=== PATIENT | female | born 1955 | race Caucasian/White ===

== ENCOUNTER 2022-12-21 11:24 | Emergency (ER) | payer BC, MEDICARE ==
[2022-12-21 11:36] VITALS: RESP 20; TEMP 98.2
[2022-12-21] MEDS ORDERED: ACETAMINOPHEN TAB 500 MG TAB PO STA (12:21)
[2022-12-21 12:31] LABS: Basophils # (A) 0.1 k/uL (0-0.2); Basophils % (A) 0 %; Eosinophils # (A) 0.4 k/uL (0-0.7); Eosinophils % (A) 2 %; HCT 42.3 % (34.0-46.0); Lymphocytes % (A) 10 %; MCH 30.3 pg (25.0-35.0); MCHC 33.1 g/dL (31.0-37.0); MCV 91.6 fL (80.0-100.0); Mean Platelet Volume 8.1; Monocytes # (A) 0.8 k/uL (0-1.0); Monocytes % (A) 4 %; Neutrophils # (A) 15.7 k/uL (1.3-7.7); Neutrophils % (A) 82 %; Platelet Count 276 k/uL (150-450); RBC 4.62 m/uL (3.80-5.40); RDW 12.7 % (11.5-15.5); WBC 19.1 k/uL (3.8-10.6)
--- NOTE | 2022-12-21 12:34 | ED ---
General Adult HPI - General Chief complaint: Skin/Abscess/Foreign Body Stated complaint: Abscess Time Seen by Provider: 12/21/22 11:39 Source: patient Mode of arrival: ambulatory Limitations: no limitations - History of Present Illness Initial comments: 67-year-old female presents to ED with a chief complaint of abscess. Patient notes history of anorectal abscess that was drained previously by Dr. Gabriel. States that she notices since then this occasionally "leaks". States today, or the past 6 days has had swelling, redness, warmth, and pain to the left buttocks and reports that her symptoms feel similar to when she had an anorectal abscess in the past. Denies fever. No other complaints at this time. - Related Data Previous Rx's Medication Instructions Recorded Amoxic-Pot Clav 875-125Mg 1 tab PO Q12HR 10 Days #20 tab 12/21/22 [Augmentin 875-125] Allergies Allergy/AdvReac Type Severity Reaction Status Date / Time No Known Allergies Allergy Verified 12/21/22 11:35 Review of Systems ROS Statement: Those systems with pertinent positive or pertinent negative responses have been documented in the HPI. ROS Other: All systems not noted in ROS Statement are negative. Past Medical History Past Medical History: No Reported History History of Any Multi-Drug Resistant Organisms: None Reported Past Surgical History: Hysterectomy Past Psychological History: No Psychological Hx Reported Smoking Status: Current every day smoker Past Alcohol Use History: Occasional Past Drug Use History: None Reported General Exam Limitations: no limitations General appearance: alert, in no apparent distress Neck exam: Present: normal inspection Respiratory exam: Present: normal lung sounds bilaterally Cardiovascular Exam: Present: regular rate, normal rhythm Rectal exam: Present: other (Proximity 6 x 3 cm indurated warm, erythematous, tender to palpation mass on the right buttocks. Area on the left buttocks shows current area of drainage however no current warmth, erythema, tenderness to palpation, or apparent mass. Chaperoned by Paula BRYANT) Neurological exam: Present: alert, oriented X3 Skin exam: Present: warm, dry Course Vital Signs 12/21/22 11:33 Temperature 98.2 F Pulse Rate 110 H Respiratory 20 Rate Blood Pressure 138/68 O2 Sat by Pulse 96 Oximetry Procedures - Incision & Drainage Site: buttock Size (cm): 6 Anesthetic Used: lidocaine 2%, with epi Amount (mLs): 15 I&D Cleaning Method: Betadine Sterile Field Used?: Yes Scalpel Used: #11 I&D Drainage Obtained: Pus Packing: Iodoform Culture Obtained?: Yes Patient Tolerated Procedure: well, no complications Medical Decision Making - Medical Decision Making Was pt. sent in by a medical professional or institution (, RAMIN, GAS APPLIANCE SERVICER, urgent care, hospital, or skilled nursing...) When possible be specific @ -No Did you speak to anyone other than the patient for history (EMS, parent, family, police, friend...)? What history was obtained from this source @ -No Did you review nursing and triage notes (agree or disagree)? Why? @ -I reviewed and agree with nursing and triage notes Were old charts reviewed (outside hosp., previous admission, EMS record, old EKG, old radiological studies, urgent care reports/EKG's, skilled nursing records)? Report findings @ -No old charts were reviewed Differential Diagnosis (chest pain, altered mental status, abdominal pain women, abdominal pain men, vaginal bleeding, weakness, fever, dyspnea, syncope, headache, dizziness, GI bleed, back pain, seizure, CVA, palpatations, mental health, musculoskeletal)? @ -Perianal abscess, perirectal abscess, MRSA, cellulitis. This is not meant to be an all-inclusive list. EKG interpreted by me (3pts min.). @ -None X-rays interpreted by me (1pt min.). @ -None done CT interpreted by me (1pt min.). @ -CT shows a 6 x 4 cm perianal abscess. U/S interpreted by me (1pt. min.). @ -None done What testing was considered but not performed or refused? (CT, X-rays, U/S, la bs)? Why? @ -None What meds were considered but not given or refused? Why? @ -None Did you discuss the management of the patient with other professionals (professionals i.e. , RAMIN, GAS APPLIANCE SERVICER, lab, RT, psych nurse, social psychologist, airframe technical officer, teacher, intelligence officer, caseworker protective services)? Give summary @ -No Was smoking cessation discussed for >3mins.? @ -No Was critical care preformed (if so, how long)? @ -No Were there social determinants of health that impacted care today? How? (Homelessness, low income, unemployed, alcoholism, drug addiction, transportation, low edu. Level, literacy, decrease access to med. care, assisted, rehab)? @ -No Was there de-escalation of care discussed even if they declined (Discuss DNR or withdrawal of care, Hospice)? DNR status @ -No What co-morbidities impacted this encounter? (DM, HTN, Smoking, COPD, CAD, Cancer, CVA, ARF, Chemo, Hep., AIDS, mental health diagnosis, sleep apnea, morbid obesity)? @ -None Was patient admitted / discharged? Hospital course, mention meds given and route, prescriptions, significant lab abnormalities, going to OR and other pertinent info. @ -Discharge. Patient did have an elevated white count however. Vital signs stable, afebrile. Patient had CT performed that showed a 6 x 4 cm abscess perianal without deeper extension. Incision and drainage performed in the ED. For further details please see procedure note. Patient started on Augmentin. Advised follow-up with surgery/PCP. Discharged home in stable condition. Discussed return precautions with patient who verbalizes agreement. Undiagnosed new problem with uncertain prognosis? @ -No Drug Therapy requiring intensive monitoring for toxicity (Heparin, Nitro, Insulin, Cardizem)? @ -No Were any procedures done? @ -No Diagnosis/symptom? @ -Perianal abscess Acute, or Chronic, or Acute on Chronic? @ -Acute Uncomplicated (without systemic symptoms) or Complicated (systemic symptoms)? @ -Uncomplicated Side effects of treatment? @ -No Exacerbation, Progression, or Severe Exacerbation? @ -No Poses a threat to life or bodily function? How? (Chest pain, USA, CA, pneumonia, PE, COPD, DKA, ARF, appy, cholecystitis, CVA, Diverticulitis, Homicidal, Suicidal, threat to staff... and all critical care pts) @ -No - Lab Data Result diagrams: 12/21/22 12:11 12/21/22 12:11 Lab Results 12/21/22 12/21/22 Range/Units 12:11 12:11 WBC 19.1 H (3.8-10.6) k/uL RBC 4.62 (3.80-5.40) m/uL Hgb 14.0 (11.4-16.0) gm/dL Hct 42.3 (34.0-46.0) % MCV 91.6 (80.0-100.0) fL MCH 30.3 (25.0-35.0) pg MCHC 33.1 (31.0-37.0) g/dL RDW 12.7 (11.5-15.5) % Plt Count 276 (150-450) k/uL MPV 8.1 Neutrophils % 82 % Lymphocytes % 10 % Monocytes % 4 % Eosinophils % 2 % Basophils % 0 % Neutrophils # 15.7 H (1.3-7.7) k/uL Lymphocytes # 2.0 (1.0-4.8) k/uL Monocytes # 0.8 (0-1.0) k/uL Eosinophils # 0.4 (0-0.7) k/uL Basophils # 0.1 (0-0.2) k/uL Sodium 137 (137-145) mmol/L Potassium 4.5 (3.5-5.1) mmol/L Chloride 102 (98-107) mmol/L Carbon Dioxide 28 (22-30) mmol/L Anion Gap 7 mmol/L BUN 13 (7-17) mg/dL Creatinine 0.63 (0.52-1.04) mg/dL Est GFR (CKD-EPI)AfAm >90 (>60 ml/min/1.73 sqM) Est GFR (CKD-EPI)NonAf >90 (>60 ml/min/1.73 sqM) Glucose 111 H (74-99) mg/dL Calcium 8.8 (8.4-10.2) mg/dL Total Bilirubin 0.8 (0.2-1.3) mg/dL AST 20 (14-36) U/L ALT 19 (4-34) U/L Alkaline Phosphatase 71 (38-126) U/L Total Protein 7.1 (6.3-8.2) g/dL Albumin 3.7 (3.5-5.0) g/dL Disposition Clinical Impression: Perineal abscess Disposition: HOME SELF-CARE Instructions (If sedation given, give patient instructions): Abscess Incision and Drainage (ED), Anorectal Abscess and Anal Fistula (ED) Additional Instructions: Please return to the Emergency Department if symptoms worsen or any other concerns. Please follow-up with surgery. Prescriptions: Amoxic-Pot Clav 875-125Mg [Augmentin 875-125] 1 tab PO Q12HR 10 Days #20 tab Is patient prescribed a controlled substance at d/c from ED?: No Referrals: Shari Lu MD [Primary Care Provider] - 1-2 days Priyanka Van DO [Doctor of Osteopathic Medicine] - 1-2 days Time of Disposition: 16:31
[2022-12-21 12:37] LABS: ALT 19 U/L (4-34); AST 20 U/L (14-36); African American GFR (CKD) >90 (>60 ml/min/1.73 sqM); Albumin 3.7 g/dL (3.5-5.0); Alkaline Phosphatase 71 U/L (38-126); Anion Gap 7 mmol/L; Blood Urea Nitrogen 13 mg/dL (7-17); Calcium 8.8 mg/dL (8.4-10.2); Carbon Dioxide 28 mmol/L (22-30); Chloride 102 mmol/L (98-107); Glucose 111 mg/dL (74-99); Non-African American GFR(CKD) >90 (>60 ml/min/1.73 sqM); Potassium 4.5 mmol/L (3.5-5.1); Sodium 137 mmol/L (137-145); Total Bilirubin 0.8 mg/dL (0.2-1.3); Total Protein 7.1 g/dL (6.3-8.2)
--- NOTE | 2022-12-21 13:43 | CT ---
EXAMINATION TYPE: CT pelvis w con DATE OF EXAM: 12/21/2022 COMPARISON: None HISTORY: Determine depth of perianal abscess RT side. CT DLP: 2089 mGycm CONTRAST: CT scan of the pelvis is performed without Oral Contrast and with IV Contrast, patient injected with 100 mL of Isovue 300. FINDINGS: LIVER/GB: No calcified gallstones. Visualized portions of the liver appear to be grossly unremarkab le. PANCREAS: Visualized portions of the pancreas are grossly unremarkable. ADRENALS: Left adrenal mass is nonspecific and partially imaged. KIDNEYS/BLADDER: Renal parenchymal thinning with underlying nephrolithiasis measuring 8 mm right kidn ey. Additional 2 mm calculi seen. No hydronephrosis or distinct renal mass. Right kidney is not ent[place] visualized. BOWEL: Normal appendix. Moderate sigmoid diverticulosis without diverticulitis. Visualized bowel loo ps are within normal GENITAL ORGANS: No gross abnormality. LYMPH NODES: No greater than 1cm abdominal or pelvic lymph nodes are appreciated. AORTA: No significant abnormality. OSSEOUS STRUCTURES: No significant abnormality is seen. OTHER: Small fat-containing umbilical hernia. Moderate sigmoid diverticulosis without diverticulitis. Left inguinal fat-containing hernia. Right perianal abscess measuring 6.6 x 4.2 x 4.2 cm. Associated surrounding soft tissue inflammation as well as skin thickening felt to reflect cellulitis. IMPRESSION: 1. Right perianal abscess. 2. Partially imaged and nonspecific left adrenal mass. CT is recommended which could be performed as an outpatient and nonemergently. 3. Renal parenchymal defects noted likely from prior infection or vascular insults. No nephrolithiasi s is noted.
[2022-12-21] MEDS ORDERED: LIDOCAINE 2%-EPI 1:100,000 20 ML VIAL SQ STA (14:29)
[2022-12-21] MEDS ORDERED: MORPHINE SULFATE 4 MG/ML SYRINGE IVP STA (14:29)
[2022-12-21] MEDS ORDERED: IBUPROFEN 600 MG STARTER PACK 4 TAB BTL PO STA (16:54)
[2022-12-21] MEDS ORDERED: ACET/COD 300 MG/30 MG STARTER PACK 6 TAB BTL PO STA (16:54)
[2022-12-21] MEDS ORDERED: AMOXIC-POT CLAV 875MG STARTER PACK 2 TAB BTL PO STA (16:54)
[2022-12-21 17:46] VITALS: BP 139/89; PULSE 98
== END 2022-12-21 17:50 | disposition home or self-care (01) ==
LOC: EC 11:24
DX: L02.215 Cutaneous abscess of perineum (principal); F17.200 Nicotine dependence, unspecified, uncomplicated
CPT/HCPCS: 36415; 80053; 85025; 87070; 87205; 72193; 99284; 96374; 10060; J2270; Q9967

== ENCOUNTER → 2022-12-30 | Outpatient (CLI) | payer MEDICARE ==
[2022-12-30 09:16] LABS: African American GFR (CKD) >90 (>60 ml/min/1.73 sqM); Blood Urea Nitrogen 14 mg/dL (7-17); Non-African American GFR(CKD) >90 (>60 ml/min/1.73 sqM)
--- NOTE | 2022-12-30 10:11 | CT ---
EXAMINATION TYPE: CT abdomen wo/w con CT DLP: 1656 mGycm, Automated exposure control for dose reduction was used. DATE OF EXAM: 12/30/2022 9:48 AM COMPARISON: CT pelvis 12/21/2022 CLINICAL INDICATION:Female, 67 years old with history of E27.8; Abn pelvis CT. Adrenal mass TECHNIQUE: Multiphase CT of the abdomen was obtained before and after the uneventful administration of 100 cc of Isovue-300 intravenously. Oral contrast was administered. Coronal and sagittal reformats were performed. FINDINGS: LOWER CHEST: Unremarkable ABDOMEN LIVER: Unremarkable GALLBLADDER AND BILE DUCTS: Unremarkable. PANCREAS: Unremarkable. SPLEEN: Unremarkable. ADRENAL GLANDS: Right adrenal gland is unremarkable. Left adrenal gland lesion measuring 4.8 x 4.4 cm . There is some punctate calcification identified within the lesion. It demonstrates a Hounsfield uni t of -2 on the noncontrast phase. There is a Hounsfield unit of 27 on the portal venous phase. Hounsf ield unit of 5.5 on the delayed phase. Absolute washout of 74.1% relative washout of 79.6% KIDNEYS AND URETERS: No evidence of hydronephrosis. Nonobstructive right renal 7 mm calculus. l obulations with cortical thinning identified within both kidneys likely from prior injuries. Right re nal cortical punctate calcifications identified. STOMACH AND BOWEL: Stomach and duodenum are unremarkable. Colonic diverticulosis of the visualized de scending colon without surrounding inflammatory changes. No evidence of bowel obstruction. PERITONEUM: No evidence of pneumoperitoneum or free fluid. VASCULATURE: Mild atherosclerotic calcifications are present throughout the abdominal aorta and its b ranches. No evidence of aortic aneurysm. MUSCULOSKELETAL: No acute osseous abnormalities. Mild disc degeneration changes are present throughou t the thoracolumbar spine. LYMPH NODES: No gross evidence for lymphadenopathy. SOFT TISSUE/ABDOMINAL WALL: Unremarkable IMPRESSION: 1. Left adrenal gland 4.8 cm lesion with enhancement characteristics consistent with a benign lipid rich adenoma. Next line 2. Nonobstructive right renal calculus. 3. Colonic diverticulosis without visualized acute diverticulitis.
== END | disposition home or self-care (01) ==
LOC: RADCTMAIN 08:39
PROVIDERS: ATTEND Family Medicine
DX: N20.0 Calculus of kidney (principal); E27.8 Other specified disorders of adrenal gland; K57.30 Diverticulosis of large intestine without perforation or abscess without bleeding
CPT/HCPCS: 82565; 84520; 74170; 36415; Q9967

== ENCOUNTER → 2023-01-06 | Outpatient (CLI) | payer MEDICARE ==
--- NOTE | 2023-01-08 00:29 | MM ---
Reason for Exam: Screening (asymptomatic). Patient History: Hysterectomy at age 50. Postmenopausal. Patient has history of breast feeding. Risk Values: Xiao 5 year model risk: 1.1%. NCI Lifetime model risk: 4.2%. Tissue Density: There are scattered fibroglandular densities. Findings: Analyzed By CAD. There is no suspicious group of microcalcifications or new suspicious mass in either breast. Overall Assessment: Negative, BI-RAD 1 Management: Screening Mammogram of both breasts in 1 year. . Patient should continue monthly self-breast exams. A clinical breast exam by your physician is recommended on an annual basis. This exam should not preclude additional follow-up of suspicious palpable abnormalities. Note on Xiao scores and lifetime risk: 1. A Xiao score greater than 3% is considered moderate risk. If this is the case, consider specialist referral to assess eligibility for a risk reducing agent. 2. If overall lifetime risk for the development of breast cancer is 20% or higher, the patient may qualify for future screening with alternating mammogram and breast MRI. Electronically signed and approved by: Bev Arthur M.D. Radiologist
== END | disposition home or self-care (01) ==
LOC: RADMAMWWP 07:25
PROVIDERS: ATTEND Family Medicine
DX: Z12.31 Encounter for screening mammogram for malignant neoplasm of breast (principal); Z78.0 Asymptomatic menopausal state
CPT/HCPCS: 77063; 77067

== ENCOUNTER → 2023-01-29 | Outpatient (CLI) | payer MEDICARE ==
[2023-01-29 09:50] LABS: African American GFR (CKD) >90 (>60 ml/min/1.73 sqM); Blood Urea Nitrogen 14 mg/dL (7-17); Non-African American GFR(CKD) 86 (>60 ml/min/1.73 sqM)
--- NOTE | 2023-01-29 10:47 | CT ---
EXAMINATION TYPE: CT abdomen w con DATE OF EXAM: 01/29/2023 COMPARISON: 12/30/2022. HISTORY: SC of circulatory CT DLP: 1908.1 mGycm Automated exposure control for dose reduction was used. TECHNIQUE: Helical acquisition of images was performed from the lung bases through the top of iliac crest to include entire abdomen. CONTRAST: Performed with Oral Contrast and with IV Contrast, patient injected with 100mL mL of Isovue 300. FINDINGS: LUNG BASES: No significant abnormality is appreciated. LIVER/GB: No significant abnormality is appreciated. PANCREAS: No significant abnormality is seen. SPLEEN: No significant abnormality is seen. ADRENALS: There is a 4.8 cm left adrenal nodule which has Hounsfield units measuring less than 0 and is compatible with an adrenal adenoma. This is unchanged since the previous examination. The right ad renal appears unremarkable KIDNEYS: There is a cortical thinning seen within the right kidney are compatible with scarring. Ther e is an 8.2 mm stone in the interpolar region of the right kidney. Scattered cortical thinning is see n within the left kidney which also relates to scarring. There is no hydronephrosis BOWEL: No significant abnormality is seen. LYMPH NODES: No significant abnormality is seen. OSSEOUS STRUCTURES: No significant abnormality is seen. FREE AIR: No free air is visualized. OTHER: IMPRESSION: 1. UNCHANGED LEFT ADRENAL ADENOMA. 2. UNCHANGED RENAL SCARRING. 3. NONOBSTRUCTING RIGHT RENAL STONE.
--- NOTE | 2023-01-29 11:14 | US ---
EXAMINATION TYPE: US carotid duplex BILAT DATE OF EXAM: 01/29/2023 COMPARISON: NONE CLINICAL INDICATION: Female, 67 years old with history of R09.89 SC OF CIRCULATORY E27.8 SX OF ADRENA L GLAND; bruit, no h/o stroke TECHNIQUE: Carotid duplex ultrasound examination. Indirect Doppler criteria was utilized. 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 Criteria for Assigning % of Stenosis / Diameter reduction (Estimation based on the indirect measurements of the internal carotid artery velocities (ICA PSV). 1. Normal (no stenosis)=ICA PSV < 125 cm/s: ratio < 2.0: ICA EDV<40 cm/s. 2. Less than 50% stenosis=ICA PSV < 125 cm/s: ratio < 2.0: ICA EDV<40 cm/s. 3. 50 to 69% stenosis=ICA PSV of 125 to 230 cm/s: ration 2.0 ? 4.0: ICA EDV 40-100 cm/s. 4. Greater than 70% stenosis to near occlusion= ICA PSV > 230 cm/s: ratio > 4.0: ICA EDV > 100 cm/s. 5. Near occlusion= ICA PSV velocities may be low or undetectable: variable ratio and ICA EDV. 6. Total occlusion=unable to detect flow.
== END | disposition home or self-care (01) ==
LOC: RADCTMAIN 08:41
PROVIDERS: ATTEND Family Medicine
DX: N20.0 Calculus of kidney (principal); E27.8 Other specified disorders of adrenal gland; D35.02 Benign neoplasm of left adrenal gland; N28.89 Other specified disorders of kidney and ureter; R09.89 Other specified symptoms and signs involving the circulatory and respiratory systems
CPT/HCPCS: 82565; 84520; 93880; 74160; 36415; Q9967

== ENCOUNTER → 2023-09-30 | Outpatient (CLI) | payer MEDICARE ==
--- NOTE | 2023-09-30 12:49 | CA ---
Exercise Stress Test Report Name: Shayy Colon Exam Date: 09/30/2023 10:31 Exam Location: [facility] Stress Ht (in): Wt (lb): BSA: Ordering Phys: Brendon Darnell MD Referring Phys: Sarah Lowry PAC Technologist: Jaya Farris Age: 68 Gender: F : 1955 Procedure CPT: Indications: R10.13 Epigastric pain ICD-10 Codes: Patient History: Epigastric pain Medications: Meds past 24 hrs: Pretest Chest Pain: STRESS TEST Elliot Protocol Exercise Duration (min:sec): 03:[address] Depressions (mm): Angina Score: Dyer Score: Resting HR (bpm): 73 Peak HR (bpm): 141 Resting BP (mmHg): 140 / 79 Peak BP (mmHg): 218 / 84 MPHR: 154 Target HR: 131 % MPHR: 92 METS: 5.9 Total Dose: Peak Dose: Atropine: Double Product: 43789 BP Response: Stress Termination: Reached target heart rate Stress Symptoms: No chest pain or symptoms Stress Summary: ECG ANALYSIS Resting ECG: Stress ECG: CONCLUSIONS Patient underwent exercise stress EKG with a Elliot protocol treadmill stress test. Patient exercised into Stage 2 for a total of 3 minutes and 45 seconds reaching a total of 5.9 METS. Patient's maximum heart rate was 141 which represented 91% age- predicted maximum heart rate. Stress EKG findings: At baseline patient's EKG showed normal sinus rhythm, normal axis, no significant ST or T wave abnormalities. At peak exercise, EKG showed no significant change from baseline. Conclusions: 1. Normal EKG response to exercise without evidence of inducible ischemia. 2. Poor exercise capacity. Dr. Stef Cameron DO (Electronically Signed) Final Date: 30 Sep 2023 12:48
--- NOTE | 2023-10-01 13:02 | CTL ---
EXAMINATION TYPE: CT Low Dose Lung DATE OF EXAM ORDERED: 09/30/2023 HISTORY: Long-term tobacco use. Lung cancer screening CT DLP: [address] CTDI: 4 mGy Automated exposure control for dose reduction was used. SCREENING VISIT: Baseline COMPARISON: None TECHNIQUE: Low dose computed tomography scan was performed through the chest at 1 mm thick sections a nd reconstructed images in multiple planes at 1 mm and [address] DIAGNOSTIC QUALITY: Satisfactory FINDINGS: Nodules: No greater than 6 mm pulmonary nodules RUL: None. RML: None. RLL: None. [place]: There is 5 x 4 mm left upper lobe pulmonary nodule axial image 41. LLL: None. LUNGS: COPD: Severity: Mild Fibrosis: Severity: Scattered Mild Lymph nodes: Prominent but subcentimeter pretracheal lymph node series 5 image 21 Other findings: None RIGHT PLEURAL SPACE: Effusion: None Calcification: None Thickening: None Pneumothorax: None LEFT PLEURAL SPACE: Effusion: None Calcification: None Thickening: None Pneumothorax: None HEART: Heart Size: Normal Coronary Calcification: Moderate Pericardial Effusion: None OTHER FINDINGS: Upper abdomen: Some areas of cortical volume loss in both kidneys are noted. Suspect incidental small duodenal diverticulum axial image 64. Bony thorax: None Supraclavicular region: None Other: None IMPRESSION: Mild emphysematous change with single 5 x 4 mm left upper lobe pulmonary nodule. No great er than [address] LUNG RAD AND CT CHEST RECOMMENDATION: Lung-Rad 2 Benign Appearance or Behavior: Continue annual sc reening with LDCT in 12 months. S Modifier (other clinically significant findings): None
== END | disposition home or self-care (01) ==
LOC: RADCTMAIN 09:50
PROVIDERS: ATTEND Family Medicine
DX: Z12.2 Encounter for screening for malignant neoplasm of respiratory organs (principal); R91.1 Solitary pulmonary nodule; F17.210 Nicotine dependence, cigarettes, uncomplicated
CPT/HCPCS: 71271; 93017

== ENCOUNTER → 2024-01-12 | Outpatient (CLI) | payer MEDICARE ==
--- NOTE | 2024-01-17 12:01 | MM ---
Reason for Exam: Screening (asymptomatic). Last mammogram was performed 1 year(s) and 1 month(s) ago. Patient History: Menarche at age 12. First Full-Term at age 24. Hysterectomy at age 50. Postmenopausal. Patient has history of breast feeding. Risk Values: Xiao 5 year model risk: 1.6%. NCI Lifetime model risk: 5.9%. Prior Study Comparison: 01/06/2023 Bilateral MG 3D screening mammo w/cad, [facility]. Tissue Density: The breasts are almost entirely fatty. Findings: Analyzed By CAD. Right breast: There is no suspicious group of microcalcifications or new suspicious mass. Left breast: There is no suspicious group of microcalcifications or new suspicious mass. Overall Assessment: Negative, BI-RAD 1 Management: Screening Mammogram of both breasts in [address] [facility] will attempt to contact patient to return for supplemental views and ultrasound if indicated. Patient should continue monthly self-breast exams. A clinical breast exam by your physician is recommended on an annual basis. This exam should not preclude additional follow-up of suspicious palpable abnormalities. Note on Xiao scores and lifetime risk: 1. A Xiao score greater than 3% is considered moderate risk. If this is the case, consider specialist referral to assess eligibility for a risk reducing agent. 2. If overall lifetime risk for the development of breast cancer is 20% or higher, the patient may qualify for future screening with alternating mammogram and breast MRI. Electronically signed and approved by: Denzel Cordova DO
== END | disposition home or self-care (01) ==
LOC: RADMAMWWP 07:39
PROVIDERS: ATTEND Family Medicine
DX: Z12.31 Encounter for screening mammogram for malignant neoplasm of breast
CPT/HCPCS: 77063; 77067